=== PATIENT | male | born 1945 | race Caucasian/White ===

== ENCOUNTER → 2019-03-04 | Emergency (ER) | payer MEDICARE, OTHER ==
[~2019-03-04] VITALS: Ht 162.6 cm; Wt 59.0 kg
[~2019-03-04] MED LIST: Albuterol/Ipratropium 3ml neb HHN PRN; Heparin 5000 units/ml inj SUBQ SCH; LORazepam Inj 2mg/ml 1ml IV PRN; Miralax 17gm pkt ORAL PRN; Morphine Sulfate 2mg/ml Inj(IV/IM USE ONLY) IVP PRN; Mylanta II UD 30ml ORAL PRN; NKM; Nitroglycerin Subl 0.4mg tab SL PRN
--- NOTE | 2019-03-04 12:56 | NUR ---
ED Nurse Note: pt came in via ra1 from a [facility] for syncope wittnessed 5 seconds no trauma initial HR 68/41 HR85 per ems . [employer] officer captain.
[2019-03-04 13:01] VITALS: BP 107/61
--- NOTE | 2019-03-04 13:29 | NUR ---
ED Nurse Note: pt refused to provide urine at this time.blood sent to lab
[2019-03-04 14:19] LABS: HEMATOCRIT 39.5 % (42.0-52.0); HEMOGLOBIN 13.8 G/DL (14.2-18.0); MEAN CORPUSCULAR VOLUME 93 FL (80-99); PLATELET COUNT 154 K/UL (150-450); RED BLOOD COUNT 4.24 M/UL (4.70-6.10); RED CELL DISTRIBUTION WIDTH 11.2 % (11.6-14.8); WHITE BLOOD COUNT 10.3 K/UL (4.8-10.8)
[2019-03-04 14:24] LABS: AMMONIA 13 umol/L (11-32); ANION GAP 11 mmol/L (5-15); BLOOD UREA NITROGEN 5 mg/dL (7-18); CARBON DIOXIDE 28 MMOL/L (21-32); CHLORIDE 99 MMOL/L (98-107); CREATININE 0.8 MG/DL (0.55-1.30); POTASSIUM 4.2 MMOL/L (3.5-5.1); SODIUM 138 MMOL/L (136-145)
--- NOTE | 2019-03-04 14:25 | Emergency Room Report ---
History of Present Illness General Chief Complaint: Syncope Source: Patient, EMS Present Illness HPI The patient had a syncopal episode. There was many observers and including a physician at the scene who said that the patient passed out completely. He says he just slumped down and feels that he is just dehydrated at this time. He denies any medical problems and says that he recently had a lab panel 3 months ago where he was fine. He denies all symptoms at this time. Apparently the patient was reluctant to undergo treatment with paramedics. Patient's blood pressure was 65 in the field. He was given fluids and his blood pressure improved. No fevers, chills, sore throat, chest pain, palpitations, nausea, vomiting, diarrhea, dysuria, abdominal pain, shortness of breath, joint pain, rashes, depression, anxiety, visual changes, dizziness, headache. History of mitral valve prolapse. The patient states he is a vegan. Allergies: Coded Allergies: NO KNOWN ALLERGIES (Unverified Allergy, Unknown, 03/04/19) Patient History Past Medical History: see triage record, other - Mitral valve prolapse Past Surgical History: other - Hernia repair hernia repairs, ankle surgery Social History: Denies: smoking, alcohol use, drug use Social History Narrative Unemployed and lives by himself Reviewed Nursing Documentation: PMH: Agreed; PSxH: Agreed Nursing Documentation-PMH Past Medical History: No Stated History Hx Cardiac Problems: No Hx Cancer: No Hx Gastrointestinal Problems: No Hx Neurological Problems: Yes Hx Cerebrovascular Accident: Yes - 1993 Review of Systems All Other Systems: negative except mentioned in HPI Physical Exam Vital Signs Date Time Temp Pulse Resp B/P (MAP) Pulse Ox O2 Delivery O2 Flow Rate FiO2 03/04/19 12:58 98.1 84 16 107/61 (76) 99 Room Air Sp02 EP Interpretation: reviewed, normal General Appearance: well appearing, no apparent distress, GCS 15, non-toxic Head: normocephalic Eyes: bilateral eye PERRL, bilateral eye scleral icterus ENT: moist mucus membranes Neck: supple Respiratory: lungs clear, normal breath sounds Cardiovascular #1: regular rate, rhythm, no edema Cardiovascular #2: 2+ radial (R) Gastrointestinal: normal inspection, normal bowel sounds, non tender, no mass, non-distended Rectal: heme negative stool Genitourinary: no CVA tenderness Musculoskeletal: back normal, normal range of motion, gait/station normal Neurologic: alert, storm sash maker III-XII nml as tested, DTRs symmetric, oriented x3, sensory intact, cerebellar normal, speech normal Psychiatric: other - argumentative about work up Skin: no rash, other - sallo Medical Decision Making Diagnostic Impression: Primary Impression: Syncope Qualified Codes: R55 - Syncope and collapse Additional Impression: Transient hypotension ER Course Patient presents post syncope with hypotension in the field. Differential includes acute myocardial infarction, dehydration, electrolyte imbalance, vasovagal episode, GI bleed amongst others. Patient is evaluated EKG, chest x- ray and labs. The patient will receive IV hydration here. At this point is refusing most work-up. EKG sinus rhythm with left ventricular per trophy and left atrial argument. Chest x-ray with atelectasis versus scarring left base. Labs remarkable for normal white count but with left shift normal H&H. Electrolytes with normal BUN and creatinine. Patient not provide urine. Troponin negative. BNP minimally Patient with increased anxiety when orthostatics being performed. Patient orthostatic and tachycardic after fluid bolus. Tolerating oral intake. Patient still tachycardic. Etiology of hypotension and tachycardia unclear. Patient insisting on leaving AMA. Risk of told to patient. 15:48. The patient insists he has to move his car. He states he will be returning to the emergency department. Laboratory Tests Test 03/04/19 13:25 White Blood Count 10.3 K/UL (4.8-10.8) Red Blood Count 4.24 M/UL (4.70-6.10) L Hemoglobin 13.8 G/DL (14.2-18.0) L Hematocrit 39.5 % (42.0-52.0) L Mean Corpuscular Volume 93 FL (80-99) Mean Corpuscular Hemoglobin 32.5 PG (27.0-31.0) H Mean Corpuscular Hemoglobin Concent 34.8 G/DL (32.0-36.0) Red Cell Distribution Width 11.2 % (11.6-14.8) L Platelet Count 154 K/UL (150-450) Mean Platelet Volume 8.5 FL (6.5-10.1) Neutrophils (%) (Auto) % (45.0-75.0) Lymphocytes (%) (Auto) % (20.0-45.0) Monocytes (%) (Auto) % (1.0-10.0) Eosinophils (%) (Auto) % (0.0-3.0) Basophils (%) (Auto) % (0.0-2.0) Differential Total Cells Counted 100 Neutrophils % (Manual) 88 % (45-75) H Lymphocytes % (Manual) 7 % (20-45) L Monocytes % (Manual) 4 % (1-10) Eosinophils % (Manual) 1 % (0-3) Basophils % (Manual) 0 % (0-2) Band Neutrophils 0 % (0-8) Platelet Estimate Adequate Platelet Morphology Normal Red Blood Cell Morphology Normal Prothrombin Time 10.6 SEC (9.30-11.50) Prothrombin Time INR 1.0 (0.9-1.1) PTT 23 SEC (23-33) Sodium Level 138 MMOL/L (136-145) Potassium Level 4.2 MMOL/L (3.5-5.1) Chloride Level 99 MMOL/L (98-107) Carbon Dioxide Level 28 MMOL/L (21-32) Anion Gap 11 mmol/L (5-15) Blood Urea Nitrogen 5 mg/dL (7-18) L Creatinine 0.8 MG/DL (0.55-1.30) Estimate Glomerular Filtration Rate mL/min (>60) Glucose Level 126 MG/DL (74-106) H Calcium Level 9.0 MG/DL (8.5-10.1) Total Bilirubin 0.6 MG/DL (0.2-1.0) Aspartate Amino Transferase (AST) 25 U/L (15-37) Alanine Aminotransferase (ALT) 22 U/L (12-78) Alkaline Phosphatase 89 U/L (46-116) Ammonia 13 umol/L (11-32) Total Creatine Kinase 86 U/L (26-308) Troponin I 0.000 ng/mL (0.000-0.056) Pro-B-Type Natriuretic Peptide 509 pg/mL (0-125) H Total Protein 6.5 G/DL (6.4-8.2) Albumin 3.8 G/DL (3.4-5.0) Globulin 2.7 g/dL Albumin/Globulin Ratio 1.4 (1.0-2.7) Lipase 68 U/L (73-393) L Serum Alcohol < 3 mg/dL EKG Diagnostic Results Rate: normal Rhythm: NSR ST Segments: no acute changes - Left atrial enlargement with nonspecific ST-T wave changes atrophy Rhythm Strip Diag. Results EP Interpretation: yes Rhythm: NSR, no PVC's, no ectopy Chest X-Ray Diagnostic Results Chest X-Ray Diagnostic Results : Chest X-Ray Ordered: Yes # of Views/Limited/Complete: 1 View Indication: Other Interpretation: no effusion, no pneumothorax, other - scarring L base Impression: Other Electronically Signed by: Electronically signed by Wenceslao Oneal MD Last Vital Signs Date Time Temp Pulse Resp B/P (MAP) Pulse Ox O2 Delivery O2 Flow Rate FiO2 03/04/19 16:28 98 16 120/76 96 03/04/19 13:01 98.4 Room Air Status: improved Disposition: AGAINST MEDICAL ADVICE Condition: Serious Referrals: NON PHYSICIAN (PCP) Wenceslao Oneal MD Mar 04, 2019 14:24
[2019-03-04 14:34] LABS: ALANINE AMINOTRANSFERASE 22 U/L (12-78); ALBUMIN 3.8 G/DL (3.4-5.0); ALBUMIN/GLOBULIN RATIO 1.4 (1.0-2.7); ALKALINE PHOSPHATASE 89 U/L (46-116); ASPARTATE AMINO TRANSFERASE 25 U/L (15-37); BILIRUBIN,TOTAL 0.6 MG/DL (0.2-1.0); CREATINE KINASE 86 U/L (26-308)
[2019-03-04 16:28] VITALS: BP 120/76
--- NOTE | 2019-03-04 16:30 | NUR ---
ED Nurse Note: Pt Jaclyn
--- NOTE | 2019-03-04 16:31 | NUR ---
ED Nurse Note: Pt cleared by health care Provider for discharge. PT AMA'd was given and explained to pt and verbalized understanding of teachings. All medical deviecs such as ID band removed. Pt is AAO x4, ambulatory and left with all personal belongings.
--- NOTE | 2019-03-04 17:12 | Diagnostic Imaging Report ---
Indication: Shortness of breath Technique: One view of the chest Comparison: none Findings: Lungs pleural spaces are clear except for a band of atelectasis at the left lung base. The heart size is upper limits of normal Impression: No acute process
== END | disposition home or self-care (01) ==
LOC: EDUNIT# 12:52 → EDBD 12:55 → EMR 13:58 → 2E 14:16 → UNDOADMOB 14:16 → EDBEDREQ 15:10
DX: R55 Syncope and collapse (principal); I95.89 Other hypotension; Z86.73 Personal history of transient ischemic attack (TIA), and cerebral infarction without residual deficits; Z98.890 Other specified postprocedural states
CPT/HCPCS: 36415; 71045; 80053; 82140; 82550; 83690; 83880; 84484; 85007; 85025; 85610; 85730; 86850; 86900; 86901; 99284; G0480